=== PATIENT | male | born 1975 | race Caucasian/White ===

== ENCOUNTER 2017-01-13 13:51 | Emergency (ER) | payer OTHER ==
[~2017-01-13] VITALS: Ht 180.3 cm; Wt 90.7 kg
[2017-01-13] MEDS ORDERED: MIRT15TA3 PO (14:00)
[2017-01-13] MEDS ORDERED: PROP1TAB29 PO (14:00)
[2017-01-13] MEDS ORDERED: LEVOTAB10 PO (14:00)
[2017-01-13] MEDS ORDERED: FLON1SPR (14:00)
[2017-01-13 15:06] LABS: BASO % 0.7 % (0.0-1.0); EOS # 0.2 K/mm3 (0.0-0.50); EOS % 4.5 % (0.0-3.0); LARGE UNSTAINED CELL # 0.1 K/mm3 (0.0-0.4); LYMPH # 1.7 K/mm3 (1.5-4.5); LYMPH % 31.2 % (24.0-44.0); MEAN CORPUSCULAR HEMOGLOBIN 28.7 pg (27.0-33.0); MEAN CORPUSCULAR HGB CONC 34.5 g/dl (32.0-36.5); MEAN CORPUSCULAR VOLUME 83.3 fl (80.0-96.0); MONO # 0.5 K/mm3 (0.0-0.8); MONO % 8.6 % (0.0-5.0); NEUTROPHILS # 2.8 K/mm3 (1.8-7.7); NEUTROPHILS % 52.9 % (36.0-66.0); PLATELET COUNT, AUTOMATED 241 k/mm3 (150-450); RED CELL DISTRIBUTION WIDTH 12.2 % (11.5-14.5); WHITE BLOOD COUNT 5.3 K/mm3 (4.0-10.0)
[2017-01-13 15:31] LABS: ANION GAP 6 MEQ/L (8-16); BLOOD UREA NITROGEN 16 MG/DL (7-18); CALCIUM LEVEL 9.4 MG/DL (8.5-10.1); CARBON DIOXIDE LEVEL 29 MEQ/L (21-32); CHLORIDE LEVEL 108 MEQ/L (98-107); CREATININE FOR GFR 1.11 MG/DL (0.70-1.30); FREE T4 0.88 NG/DL (0.76-1.46); GLOMERULAR FILTRATION RATE > 60.0 (>60); GLUCOSE, FASTING 94 MG/DL (70-105); POTASSIUM SERUM 3.9 MEQ/L (3.5-5.1); SODIUM LEVEL 143 MEQ/L (136-145)
[2017-01-13 16:59] VITALS: BP 110/68
--- NOTE | 2017-01-13 20:24 | ECGEPIP ---
Stationary ECG Study [facility] - ED Test Date: 2017-01-13 Pat Name: ROZ FELDMAN Department: Room: - Gender: M E [employer] Strategist: IRINA : 1975 Requested By: Miley Tapia Order Number: [id number] Reading MD: Miley Tapia Measurements Intervals [place] Rate: 57 P: 14 NE: 143 QRS: 18 QRSD: 100 T: -5 QT: 396 QTc: 388 Interpretive Statements SINUS BRADYCARDIA NO PRIOR ECG Electronically Signed On 01-13-2017 20:23:49 EDT by Miley Tapia
== END 2017-01-13 17:09 | disposition home or self-care (01) ==
LOC: M ED 16:15
DX: I10 Essential (primary) hypertension (principal); F17.200 Nicotine dependence, unspecified, uncomplicated; Z79.899 Other long term (current) drug therapy; Z88.0 Allergy status to penicillin

== ENCOUNTER → 2018-08-17 | Outpatient (CLI) | payer OTHER | LOC: M WUC 10:17 | DX: M54.5 Low back pain (principal) | CPT/HCPCS: 72110 ==

== ENCOUNTER → 2021-06-26 | Outpatient (CLI) | payer OTHER ==
[~2021-06-26] MED LIST: FLON1SPR; LEVOTAB10 PO; MIRT15TA3 PO; PROP20TA72 PO
== END ==
LOC: M LABSMTC 11:15
PROVIDERS: ATTEND Pediatrics
DX: Z20.828 Contact with and (suspected) exposure to other viral communicable diseases (principal); Z11.52 Encounter for screening for COVID-19
CPT/HCPCS: C9803; U0003

== ENCOUNTER → 2021-11-17 | Outpatient (CLI) | payer OTHER ==
[~2021-11-17] MED LIST changes: +MIRT1TAB15 PO
== END ==
LOC: M LABSMTC 09:55
PROVIDERS: ATTEND Anesthesiology
DX: Z01.812 Encounter for preprocedural laboratory examination (principal); Z20.822 Contact with and (suspected) exposure to COVID-19

== ENCOUNTER 2021-11-21 07:59 | Day surgery (SDC) | payer OTHER ==
[~2021-11-21] VITALS: Ht 177.8 cm; Wt 88.8 kg
[~2021-11-21 07:59] MED LIST changes: +LIDOCAINE 2% 100MG/5ML SDV (FOR ANES.) As Ordered ONE; +NS 1,000 ML IV ONE; +propofoL 200 MG/20 ML VIAL As Ordered ONE
[2021-11-21 09:48] VITALS: BP 121/82
== END 2021-11-21 10:03 | disposition home or self-care (01) ==
LOC: M OPP 07:59
PROVIDERS: ATTEND Internal Medicine Gastroenterology
DX: Z12.11 Encounter for screening for malignant neoplasm of colon (principal); Z80.0 Family history of malignant neoplasm of digestive organs; K64.8 Other hemorrhoids; K63.5 Polyp of colon; Z88.0 Allergy status to penicillin; Z88.8 Allergy status to other drugs, medicaments and biological substances

== ENCOUNTER 2024-11-24 09:15 | Day surgery (SDC) | payer OTHER ==
[~2024-11-24] VITALS: Ht 177.8 cm; Wt 88.5 kg
[~2024-11-24 09:15] MED LIST changes: -LIDOCAINE 2% 100MG/5ML SDV (FOR ANES.) As Ordered ONE; -NS 1,000 ML IV ONE; -propofoL 200 MG/20 ML VIAL As Ordered ONE
[2024-11-24] MEDS ORDERED: propofoL 200 MG/20 ML VIAL As Ordered ONE (10:35)
[2024-11-24] MEDS ORDERED: LIDOCAINE 2% 100MG/5ML SDV (FOR ANES.) As Ordered ONE (10:35)
[2024-11-24 12:05] VITALS: BP 117/75; O2SAT 97
== END 2024-11-24 12:07 | disposition home or self-care (01) ==
LOC: M OPP 09:15
PROVIDERS: ATTEND Surgery
DX: K64.1 Second degree hemorrhoids (principal); Z86.0100 Personal history of colon polyps, unspecified; Z88.0 Allergy status to penicillin; Z88.1 Allergy status to other antibiotic agents; Z79.899 Other long term (current) drug therapy